=== PATIENT | male | born 1940 | race Caucasian/White ===

== ENCOUNTER 2017-11-02 09:58 | Inpatient (IN) | payer MEDICARE, OTHER ==
[2017-11-02 11:39] LABS: ADD MAN DIFF? NO
[2017-11-02 12:05] LABS: BASOPHILS % 0.3 % (0.0-2.0); EOSINOPHILS # 0.1 10^3/ul (0.0-0.5); EOSINOPHILS % 1.3 % (0.0-7.0); HEMATOCRIT 29.7 % (42.0-52.0); LYMPHOCYTES # 0.9 10^3/ul (0.8-2.9); LYMPHOCYTES % 9.8 % (15.0-51.0); MEAN CORPUSCULAR HEMOGLOBIN 30.7 pg (29.0-33.0); MEAN CORPUSCULAR HGB CONC 33.7 g/dl (32.0-37.0); MEAN CORPUSCULAR VOLUME 91.1 fl (82.0-101.0); MEAN PLATELET VOLUME 11.2 fl (7.4-10.4); MONOCYTE # 0.8 10^3/ul (0.3-0.9); NEUTROPHIL # 7.1 10^3/ul (1.6-7.5); NEUTROPHILS % 77.6 % (39.0-77.0); PLATELET COUNT 150 10^3/UL (140-415); RED BLOOD COUNT 3.26 10^6/ul (4.70-6.10); RED CELL DISTRIBUTION WIDTH 13.2 % (11.5-14.5)
[2017-11-02 12:05] LABS: WHITE BLOOD COUNT 9.2 10^3/ul (4.8-10.8)
[2017-11-02 12:11] LABS: LACTIC ACID 0.9 mmol/L (0.5-2.0)
[2017-11-02 12:13] LABS: ALANINE AMINOTRANSFERASE 46 IU/L (13-69); ALBUMIN 4.1 g/dl (3.3-4.9); ALBUMIN/GLOBULIN RATIO 1.05; ALKALINE PHOSPHATASE 117 IU/L (42-121); AMYLASE 67 U/L (11-123); ANION GAP 18 (8-16); ASPARTATE AMINO TRANSFERASE 24 IU/L (15-46); BILIRUBIN,INDIRECT 0.2 mg/dl (0-1.1); BILIRUBIN,TOTAL 0.2 mg/dl (0.2-1.3); BLOOD UREA NITROGEN 48 mg/dl (7-20); CARBON DIOXIDE 29 mmol/L (21-31); CHLORIDE 94 mmol/L (97-110); CREATININE 8.48 mg/dl (0.61-1.24); GLUCOSE 110 mg/dl (70-220); LIPASE 34 U/L (23-300); POTASSIUM 4.5 mmol/L (3.5-5.1); SODIUM 136 mmol/L (135-144)
[2017-11-02 12:26] LABS: TROPONIN-I 0.037 ng/ml (0.00-0.12)
[2017-11-02] MEDS: morphine 4 MG/ML VIAL IV (12:31)
[2017-11-02] MEDS: ONDANSETRON 4 MG INJ IV (12:32)
[2017-11-02] MEDS: ACETAMINOPHEN 500 MG TAB PO (12:33)
[2017-11-02] MEDS: PIPER-TAZO 3.375 GM IV (PMX) 50 ML IVPB (12:33)
[2017-11-02] MEDS: FUROSEMIDE 40 MG INJ IV (12:36)
[2017-11-02 12:57] LABS: B-TYPE NATRIURETIC PEPTIDE 2730 PG/ML (0-450)
[2017-11-02] MEDS ORDERED: ONDANSETRON 4 MG INJ IV ×2 (13:00→13:30)
[2017-11-02] MEDS ORDERED: ACETAMINOPHEN 325 MG TAB PO ×2 (13:00→13:30)
[2017-11-02] MEDS ORDERED: HYDROCODONE/APAP (5/325) TAB PO (13:30)
[2017-11-02] MEDS ORDERED: NACL 0.9% 3 ML SYG IV (13:30)
[2017-11-02] MEDS ORDERED: DOCUSATE SODIUM 100 MG CAP PO (13:30)
[2017-11-02] MEDS ORDERED: MAGNESIUM HYDROXIDE 30ML CUP PO (13:30)
[2017-11-02] MEDS ORDERED: VANCOMYCIN IV PER PHARMACY XX (13:30)
[2017-11-02] MEDS ORDERED: ZOLPIDEM 5 MG TAB PO (13:30)
[2017-11-02] MEDS ORDERED: ALBUTEROL HFA 8 GM INHALER INH (13:30)
[2017-11-02] MEDS ORDERED: GLUCOSE GEL 15 GRAM TUBE PO ×2 (15:00)
[2017-11-02] MEDS ORDERED: DEXTROSE 50% 50 ML SYRINGE IV ×2 (15:00)
[2017-11-02] MEDS ORDERED: GLUCAGON 1 MG INJ IM (15:00)
[2017-11-02] MEDS ORDERED: GLUCOSE GEL 15 GRAM TUBE BUCCAL (15:00)
[2017-11-02] MEDS: ALBUTEROL 0.083% (NEB) 2.5 MG/3 ML AMP NEB (15:04)
[2017-11-02] MEDS: IPRATROPIUM (NEB) 0.5 MG/2.5 ML AMP NEB (15:04)
[2017-11-02] MEDS: VANCOMYCIN 1.5 GM in DEXTROSE 5% 500 ML IVPB (16:04)
[2017-11-02] MEDS: INSULIN ASPART [NOVOLOG] 3 ML PEN SC ×2 (21:00→21:48)
[2017-11-02] MEDS: CALCIUM ACETATE 667 MG CAP PO (21:02)
[2017-11-02] MEDS: SEVELAMER CARBONATE 0.8 GM PKT PO (21:02)
[2017-11-02] MEDS: HEPARIN 5,000 UNIT/0.5 ML VIAL SC (21:20)
[2017-11-02] MEDS: ATORVASTATIN 80 MG TAB PO (21:49)
[2017-11-02] MEDS: PIPER-TAZO 2.25 GM (PMX) 50 ML IVPB (22:51)
[2017-11-03] MEDS: ACCU-CHEK XX (02:12)
[2017-11-03] MEDS ORDERED: PANTOPRAZOLE (EC) 40 MG TAB PO (06:00)
[2017-11-03] MEDS: PANTOPRAZOLE (EC) 40 MG TAB PO (06:41)
[2017-11-03] MEDS: PIPER-TAZO 2.25 GM (PMX) 50 ML IVPB ×2 (06:42→13:14)
[2017-11-03] MEDS: INSULIN ASPART [NOVOLOG] 3 ML PEN SC ×4 (08:00→21:00)
[2017-11-03] MEDS: METOPROLOL (XL) 50 MG TAB PO (09:00)
[2017-11-03] MEDS: LISINOPRIL 5 MG TAB PO (09:00)
[2017-11-03 09:10] LABS: ADD MAN DIFF? NO
[2017-11-03] MEDS: morphine 2 MG INJ IV (09:10)
[2017-11-03] MEDS: CALCIUM ACETATE 667 MG CAP PO ×3 (09:11→17:43)
[2017-11-03] MEDS: ASPIRIN (EC) 81 MG TAB PO (09:11)
[2017-11-03] MEDS: CLOPIDOGREL 75 MG TAB PO (09:11)
[2017-11-03] MEDS: HEPARIN 5,000 UNIT/0.5 ML VIAL SC ×2 (09:13→20:47)
[2017-11-03 09:26] LABS: WHITE BLOOD COUNT 5.9 10^3/ul (4.8-10.8)
[2017-11-03 09:26] LABS: BASOPHILS % 0.5 % (0.0-2.0); EOSINOPHILS # 0.1 10^3/ul (0.0-0.5); EOSINOPHILS % 1.9 % (0.0-7.0); HEMATOCRIT 31.1 % (42.0-52.0); HEMOGLOBIN 10.3 g/dl (14.0-18.0); LYMPHOCYTES % 16.2 % (15.0-51.0); MEAN CORPUSCULAR HEMOGLOBIN 30.6 pg (29.0-33.0); MEAN CORPUSCULAR HGB CONC 33.1 g/dl (32.0-37.0); MEAN CORPUSCULAR VOLUME 92.3 fl (82.0-101.0); MEAN PLATELET VOLUME 10.9 fl (7.4-10.4); MONOCYTE # 0.6 10^3/ul (0.3-0.9); MONOCYTES % 10.9 % (0.0-11.0); NEUTROPHIL # 3.9 10^3/ul (1.6-7.5); NEUTROPHILS % 66.9 % (39.0-77.0); PLATELET COUNT 150 10^3/UL (140-415); RED BLOOD COUNT 3.37 10^6/ul (4.70-6.10); RED CELL DISTRIBUTION WIDTH 13.4 % (11.5-14.5)
[2017-11-03 09:39] LABS: ALANINE AMINOTRANSFERASE 41 IU/L (13-69); ALBUMIN 3.8 g/dl (3.3-4.9); ALBUMIN/GLOBULIN RATIO 1.02; ALKALINE PHOSPHATASE 101 IU/L (42-121); ANION GAP 22 (8-16); ASPARTATE AMINO TRANSFERASE 25 IU/L (15-46); BILIRUBIN,INDIRECT 0.1 mg/dl (0-1.1); BILIRUBIN,TOTAL 0.1 mg/dl (0.2-1.3); BLOOD UREA NITROGEN 60 mg/dl (7-20); CALCIUM 8.8 mg/dl (8.4-10.2); CARBON DIOXIDE 21 mmol/L (21-31); CHLORIDE 96 mmol/L (97-110); CREATININE 9.65 mg/dl (0.61-1.24); GLUCOSE 108 mg/dl (70-220); PHOSPHORUS 6.2 mg/dl (2.5-4.9); POTASSIUM 5.1 mmol/L (3.5-5.1); SODIUM 134 mmol/L (135-144); TOTAL PROTEIN 7.5 g/dl (6.1-8.1)
[2017-11-03 09:44] LABS: URIC ACID 8.7 mg/dl (3.1-7.9)
[2017-11-03] MEDS: SEVELAMER CARBONATE 0.8 GM PKT PO ×3 (10:01→17:44)
[2017-11-03 10:06] LABS: THYROID STIMULATING HORMONE 0.695 MIU/L (0.465-4.680)
[2017-11-03 11:20] LABS: HEMOGLOBIN A1C 5.4 % (0-5.9)
[2017-11-03] MEDS: ALLOPURINOL 100 MG TAB PO (13:12)
[2017-11-03] MEDS ORDERED: VANCOMYCIN IV PER PHARMACY XX (14:30)
[2017-11-03] MEDS: COLCHICINE 0.6 MG TAB PO (16:46)
[2017-11-03] MEDS ORDERED: BUPIVACAINE 0.5%/EPI (SDV) 30 ML INJ INJ (17:30)
[2017-11-03] MEDS ORDERED: BETAMET NA PHOS/AC(6 MG/ML) 5ML INJ INJ (17:30)
[2017-11-03] MEDS: ATORVASTATIN 80 MG TAB PO (20:46)
[2017-11-04] MEDS: ACCU-CHEK XX (02:47)
[2017-11-04 05:47] LABS: ADD MAN DIFF? NO
[2017-11-04 05:56] LABS: WHITE BLOOD COUNT 6.6 10^3/ul (4.8-10.8)
[2017-11-04 05:56] LABS: BASOPHILS % 0.3 % (0.0-2.0); EOSINOPHILS # 0.2 10^3/ul (0.0-0.5); EOSINOPHILS % 2.4 % (0.0-7.0); HEMATOCRIT 30.7 % (42.0-52.0); HEMOGLOBIN 10.4 g/dl (14.0-18.0); LYMPHOCYTES # 0.8 10^3/ul (0.8-2.9); LYMPHOCYTES % 12.2 % (15.0-51.0); MEAN CORPUSCULAR HEMOGLOBIN 30.9 pg (29.0-33.0); MEAN CORPUSCULAR HGB CONC 33.9 g/dl (32.0-37.0); MEAN CORPUSCULAR VOLUME 91.1 fl (82.0-101.0); MEAN PLATELET VOLUME 10.8 fl (7.4-10.4); MONOCYTE # 0.7 10^3/ul (0.3-0.9); MONOCYTES % 10.4 % (0.0-11.0); NEUTROPHIL # 4.8 10^3/ul (1.6-7.5); NEUTROPHILS % 72.7 % (39.0-77.0); PLATELET COUNT 175 10^3/UL (140-415); RED BLOOD COUNT 3.37 10^6/ul (4.70-6.10)
[2017-11-04] MEDS: PANTOPRAZOLE (EC) 40 MG TAB PO (06:19)
[2017-11-04 06:36] LABS: ANION GAP 18 (8-16); BLOOD UREA NITROGEN 31 mg/dl (7-20); CALCIUM 8.7 mg/dl (8.4-10.2); CARBON DIOXIDE 28 mmol/L (21-31); CHLORIDE 94 mmol/L (97-110); CREATININE 6.08 mg/dl (0.61-1.24); GLUCOSE 159 mg/dl (70-220); POTASSIUM 4.6 mmol/L (3.5-5.1); SODIUM 135 mmol/L (135-144)
[2017-11-04 06:41] LABS: PHOSPHORUS 4.2 mg/dl (2.5-4.9)
[2017-11-04 06:41] LABS: MAGNESIUM 1.8 mg/dl (1.7-2.5); URIC ACID 4.4 mg/dl (3.1-7.9)
[2017-11-04] MEDS: INSULIN ASPART [NOVOLOG] 3 ML PEN SC ×4 (08:00→21:00)
[2017-11-04] MEDS: SEVELAMER CARBONATE 0.8 GM PKT PO ×3 (08:32→18:44)
[2017-11-04] MEDS: HEPARIN 5,000 UNIT/0.5 ML VIAL SC ×2 (08:33→21:18)
[2017-11-04] MEDS: CLOPIDOGREL 75 MG TAB PO (08:35)
[2017-11-04] MEDS: ASPIRIN (EC) 81 MG TAB PO (08:35)
[2017-11-04] MEDS: CALCIUM ACETATE 667 MG CAP PO ×3 (08:35→18:44)
[2017-11-04] MEDS: METOPROLOL (XL) 50 MG TAB PO (08:35)
[2017-11-04] MEDS: ALLOPURINOL 100 MG TAB PO (08:35)
[2017-11-04] MEDS: LISINOPRIL 5 MG TAB PO (08:35)
[2017-11-04] MEDS: VANCOMYCIN 1 GM 250 ML IVPB (11:52)
[2017-11-04] MEDS: ATORVASTATIN 80 MG TAB PO (21:19)
[2017-11-05] MEDS: ACCU-CHEK XX (02:00)
[2017-11-05] MEDS: PANTOPRAZOLE (EC) 40 MG TAB PO (06:19)
[2017-11-05] MEDS: INSULIN ASPART [NOVOLOG] 3 ML PEN SC ×4 (08:00→21:00)
[2017-11-05] MEDS: CLOPIDOGREL 75 MG TAB PO (08:29)
[2017-11-05] MEDS: ASPIRIN (EC) 81 MG TAB PO (08:29)
[2017-11-05] MEDS: CALCIUM ACETATE 667 MG CAP PO ×3 (08:29→17:30)
[2017-11-05] MEDS: ALLOPURINOL 100 MG TAB PO (08:29)
[2017-11-05] MEDS: SEVELAMER CARBONATE 0.8 GM PKT PO ×3 (08:29→17:29)
[2017-11-05] MEDS: HEPARIN 5,000 UNIT/0.5 ML VIAL SC ×2 (08:35→21:54)
[2017-11-05 08:41] LABS: ADD MAN DIFF? NO
[2017-11-05 08:45] LABS: BASOPHILS % 0.4 % (0.0-2.0); EOSINOPHILS # 0.1 10^3/ul (0.0-0.5); EOSINOPHILS % 2.6 % (0.0-7.0); HEMATOCRIT 30.3 % (42.0-52.0); HEMOGLOBIN 10.3 g/dl (14.0-18.0); MEAN CORPUSCULAR HEMOGLOBIN 30.7 pg (29.0-33.0); MEAN CORPUSCULAR VOLUME 90.4 fl (82.0-101.0); MEAN PLATELET VOLUME 11.2 fl (7.4-10.4); MONOCYTE # 0.5 10^3/ul (0.3-0.9); MONOCYTES % 10.3 % (0.0-11.0); NEUTROPHIL # 3.3 10^3/ul (1.6-7.5); NEUTROPHILS % 64.3 % (39.0-77.0); PLATELET COUNT 145 10^3/UL (140-415); RED BLOOD COUNT 3.35 10^6/ul (4.70-6.10); RED CELL DISTRIBUTION WIDTH 13.2 % (11.5-14.5)
[2017-11-05 08:45] LABS: WHITE BLOOD COUNT 5.1 10^3/ul (4.8-10.8)
[2017-11-05 09:00] LABS: ANION GAP 21 (8-16); BLOOD UREA NITROGEN 48 mg/dl (7-20); CALCIUM 8.5 mg/dl (8.4-10.2); CARBON DIOXIDE 28 mmol/L (21-31); CHLORIDE 93 mmol/L (97-110); CREATININE 8.74 mg/dl (0.61-1.24); GLUCOSE 117 mg/dl (70-220); SODIUM 137 mmol/L (135-144)
[2017-11-05] MEDS: METOPROLOL (XL) 50 MG TAB PO (09:00)
[2017-11-05] MEDS: LISINOPRIL 5 MG TAB PO (09:00)
[2017-11-05 09:05] LABS: POTASSIUM 5.3 mmol/L (3.5-5.1)
[2017-11-05 09:10] LABS: PHOSPHORUS 5.9 mg/dl (2.5-4.9)
[2017-11-05] MEDS: FAMOTIDINE 20 MG TAB PO (21:54)
[2017-11-05] MEDS: ATORVASTATIN 40 MG TAB PO (21:54)
[2017-11-06] MEDS: NAPROXEN 250 MG TAB PO ×2 (00:03→09:26)
[2017-11-06] MEDS: ACCU-CHEK XX (02:00)
[2017-11-06] MEDS: PANTOPRAZOLE (EC) 40 MG TAB PO (05:37)
[2017-11-06] MEDS: INSULIN ASPART [NOVOLOG] 3 ML PEN SC ×3 (08:00→17:38)
[2017-11-06 08:13] LABS: ADD MAN DIFF? NO
[2017-11-06] MEDS: CALCIUM ACETATE 667 MG CAP PO ×3 (08:16→17:35)
[2017-11-06 08:18] LABS: BASOPHILS % 0.3 % (0.0-2.0); EOSINOPHILS # 0.1 10^3/ul (0.0-0.5); EOSINOPHILS % 1.9 % (0.0-7.0); HEMATOCRIT 32.7 % (42.0-52.0); HEMOGLOBIN 10.9 g/dl (14.0-18.0); LYMPHOCYTES # 1.2 10^3/ul (0.8-2.9); LYMPHOCYTES % 20.3 % (15.0-51.0); MEAN CORPUSCULAR HEMOGLOBIN 30.6 pg (29.0-33.0); MEAN CORPUSCULAR HGB CONC 33.3 g/dl (32.0-37.0); MEAN CORPUSCULAR VOLUME 91.9 fl (82.0-101.0); MEAN PLATELET VOLUME 11.2 fl (7.4-10.4); MONOCYTE # 0.6 10^3/ul (0.3-0.9); MONOCYTES % 10.7 % (0.0-11.0); NEUTROPHIL # 3.8 10^3/ul (1.6-7.5); NEUTROPHILS % 64.9 % (39.0-77.0); PLATELET COUNT 139 10^3/UL (140-415); RED BLOOD COUNT 3.56 10^6/ul (4.70-6.10); RED CELL DISTRIBUTION WIDTH 12.9 % (11.5-14.5)
[2017-11-06 08:18] LABS: WHITE BLOOD COUNT 5.8 10^3/ul (4.8-10.8)
[2017-11-06] MEDS: SEVELAMER CARBONATE 0.8 GM PKT PO ×3 (08:21→17:35)
[2017-11-06 08:52] LABS: ANION GAP 21 (8-16); BLOOD UREA NITROGEN 33 mg/dl (7-20); CALCIUM 8.6 mg/dl (8.4-10.2); CARBON DIOXIDE 30 mmol/L (21-31); CHLORIDE 97 mmol/L (97-110); GLUCOSE 102 mg/dl (70-220); POTASSIUM 5.1 mmol/L (3.5-5.1); SODIUM 143 mmol/L (135-144)
[2017-11-06 08:57] LABS: MAGNESIUM 2.2 mg/dl (1.7-2.5)
[2017-11-06 08:57] LABS: PHOSPHORUS 6.1 mg/dl (2.5-4.9)
[2017-11-06] MEDS: LISINOPRIL 5 MG TAB PO (09:25)
[2017-11-06] MEDS: CLOPIDOGREL 75 MG TAB PO (09:25)
[2017-11-06] MEDS: ASPIRIN (EC) 81 MG TAB PO (09:26)
[2017-11-06] MEDS: ALLOPURINOL 100 MG TAB PO (09:26)
[2017-11-06] MEDS: METOPROLOL (XL) 50 MG TAB PO (09:27)
[2017-11-06] MEDS: HEPARIN 5,000 UNIT/0.5 ML VIAL SC (09:29)
== END 2017-11-06 17:49 | disposition home or self-care (01) | DRG 602 ==
LOC: MS4 12:42 → PP2 11-06 13:22 → E/R 09:58
PROC: 5A1D70Z Performance of Urinary Filtration, Intermittent, Less than 6 Hours Per Day (ICD-10-PCS; principal; 2017-11-03)
DX: L03.115 Cellulitis of right lower limb (principal); N18.6 End stage renal disease; R78.81 Bacteremia; E87.70 Fluid overload, unspecified; I12.0 Hypertensive chronic kidney disease with stage 5 chronic kidney disease or end stage renal disease; J44.9 Chronic obstructive pulmonary disease, unspecified; B95.61 Methicillin susceptible Staphylococcus aureus infection as the cause of diseases classified elsewhere; E78.5 Hyperlipidemia, unspecified; D63.1 Anemia in chronic kidney disease; S76.111A Strain of right quadriceps muscle, fascia and tendon, initial encounter; L02.415 Cutaneous abscess of right lower limb; I25.10 Atherosclerotic heart disease of native coronary artery without angina pectoris; I25.2 Old myocardial infarction; M10.9 Gout, unspecified; M23.221 Derangement of posterior horn of medial meniscus due to old tear or injury, right knee; M76.51 Patellar tendinitis, right knee; M76.891 Other specified enthesopathies of right lower limb, excluding foot; M71.9 Bursopathy, unspecified; M71.21 Synovial cyst of popliteal space [Baker], right knee; M25.461 Effusion, right knee; M17.11 Unilateral primary osteoarthritis, right knee; R73.03 Prediabetes; X58.XXXA Exposure to other specified factors, initial encounter; Z99.2 Dependence on renal dialysis; Z95.1 Presence of aortocoronary bypass graft; Z95.5 Presence of coronary angioplasty implant and graft; Z87.891 Personal history of nicotine dependence; Z79.02 Long term (current) use of antithrombotics/antiplatelets; Z79.82 Long term (current) use of aspirin
CPT/HCPCS: 71045; 73562; 73721; 80048; 80053; 80202; 82150; 82962; 83036; 83605; 83690; 83735; 83880; 84100; 84443; 84484; 84560; 85025; 86850; 86900; 86901; 87040; 87086; 90935; 93005; 93306; 94664; 96372; 96374; 96375; 99285-25

== ENCOUNTER 2018-05-17 15:31 | Inpatient (IN) | payer MEDICARE, OTHER ==
[2018-05-17 17:39] LABS: ADD MAN DIFF? NO
[2018-05-17 17:41] LABS: ADD UMIC YES; UR ASCORBIC ACID NEGATIVE (NEGATIVE); UR BILIRUBIN (Dip) NEGATIVE (NEGATIVE); UR BLOOD (Dip) 2+ mg/dL (NEGATIVE); UR CLARITY CLEAR (CLEAR); UR COLOR YELLOW (YELLOW); UR GLUCOSE (Dip) 1+ mg/dL (NEGATIVE); UR KETONES (Dip) NEGATIVE (NEGATIVE); UR LEUKOCYTE ESTERASE (Dip) NEGATIVE Leu/ul (NEGATIVE); UR NITRITE (Dip) NEGATIVE (NEGATIVE); UR RBC 29 /HPF (0-5); UR SPECIFIC GRAVITY (Dip) 1.019 (1.003-1.030); UR TOTAL PROTEIN (Dip) 3+ mg/dl (NEGATIVE); UR UROBILINOGEN (Dip) NEGATIVE (NEGATIVE); UR WBC 2 /HPF (0-5)
[2018-05-17] MEDS: ACETAMINOPHEN 325 MG TAB PO (17:44)
[2018-05-17] MEDS: CEFEPIME 2GM/50 ML (PMX) 50 ML IVPB (17:44)
[2018-05-17 17:50] LABS: ABNORMAL IP MESSAGE 1; HEMATOCRIT 35.7 % (42.0-52.0); HEMOGLOBIN 11.6 g/dl (14.0-18.0); MEAN CORPUSCULAR HEMOGLOBIN 31.4 pg (29.0-33.0); MEAN CORPUSCULAR HGB CONC 32.5 g/dl (32.0-37.0); MEAN CORPUSCULAR VOLUME 96.5 fl (82.0-101.0); MEAN PLATELET VOLUME 12.1 fl (7.4-10.4); PLATELET COUNT 89 10^3/UL (140-415); POSITIVE DIFF @See below; RED CELL DISTRIBUTION WIDTH 13.3 % (11.5-14.5)
[2018-05-17 17:50] LABS: WHITE BLOOD COUNT 11.7 10^3/ul (4.8-10.8)
[2018-05-17 18:09] LABS: INR 1.32; PROTIME 16.6 Sec (11.9-14.9); PT RATIO 1.3
[2018-05-17 18:10] LABS: ALANINE AMINOTRANSFERASE 23 IU/L (13-69); ALBUMIN 4.5 g/dl (3.3-4.9); ALBUMIN/GLOBULIN RATIO 1.36; ALKALINE PHOSPHATASE 118 IU/L (42-121); ANION GAP 19 (8-16); ASPARTATE AMINO TRANSFERASE 23 IU/L (15-46); BILIRUBIN,INDIRECT 0.4 mg/dl (0-1.1); BILIRUBIN,TOTAL 0.4 mg/dl (0.2-1.3); BLOOD UREA NITROGEN 42 mg/dl (7-20); CALCIUM 8.9 mg/dl (8.4-10.2); CARBON DIOXIDE 28 mmol/L (21-31); CHLORIDE 94 mmol/L (97-110); CREATININE 9.99 mg/dl (0.61-1.24); GLUCOSE 104 mg/dl (70-220); LIPASE 49 U/L (23-300); SODIUM 136 mmol/L (135-144); TOTAL PROTEIN 7.8 g/dl (6.1-8.1)
[2018-05-17 18:22] LABS: LACTIC ACID 1.3 mmol/L (0.5-2.0)
[2018-05-17 18:22] LABS: POTASSIUM 5.4 mmol/L (3.5-5.1)
[2018-05-17 18:29] LABS: BASOPHIL #M 0.1 10^3/ul (0.0-0.0); BASOPHILS % (M) 1 % (0-2); EOSINOPHILS % (M) 1 % (0-7); GIANT THROMBO% (M) 1 % (0-0); LYMPHOCYTES % (M) 9 % (15-51); MONOCYTE #M 1.4 10^3/ul (0.3-0.9); MONOCYTES % (M) 12 % (0-11); PLATELET ESTIMATE DECREASED; SEGMENTED NEUTROPHILS (M) % 77 % (39-77)
[2018-05-17 18:42] LABS: TROPONIN-I 0.034 ng/ml (0.000-0.120)
[2018-05-17] MEDS: IPRATROPIUM (NEB) 0.5 MG/2.5 ML AMP INH (18:44)
[2018-05-17] MEDS: ALBUTEROL 0.5% (NEB) 2.5 MG/0.5 ML AMP INH (18:45)
[2018-05-17] MEDS: VANCOMYCIN 1 GM (PMX) 250 ML IVPB (19:35)
[2018-05-17 20:00] LABS: LACTIC ACID 0.8 mmol/L (0.5-2.0)
[2018-05-17 22:16] LABS: LACTIC ACID 0.8 mmol/L (0.5-2.0)
[2018-05-17 22:53] LABS: PHOSPHORUS 4.1 mg/dl (2.5-4.9)
[2018-05-17 23:24] LABS: CARCINOEMBRYONIC ANTIGEN 4.4 ng/ml (0.0-5.0)
[2018-05-17 23:48] LABS: PROSTATE SPECIFIC ANTIGEN 2.2 ng/ml (0.0-4.0)
[2018-05-18] MEDS ORDERED: VANCOMYCIN IV PER PHARMACY XX ×2 (00:30→06:30)
[2018-05-18] MEDS: LISINOPRIL 5 MG TAB PO (01:10)
[2018-05-18] MEDS: METOPROLOL (XL) 50 MG TAB PO ×2 (01:11→08:56)
[2018-05-18] MEDS: ALBUTEROL/IPRATROPIUM (NEB) 3 ML AMP HHN ×5 (02:09→20:38)
[2018-05-18] MEDS: PANTOPRAZOLE (EC) 40 MG TAB PO (05:26)
[2018-05-18 06:33] LABS: ADD MAN DIFF? NO
[2018-05-18 06:55] LABS: ANION GAP 21 (8-16); BLOOD UREA NITROGEN 49 mg/dl (7-20); CALCIUM 8.7 mg/dl (8.4-10.2); CARBON DIOXIDE 21 mmol/L (21-31); CHLORIDE 98 mmol/L (97-110); CREATININE 10.07 mg/dl (0.61-1.24); GLUCOSE 115 mg/dl (70-220); POTASSIUM 5.7 mmol/L (3.5-5.1); SODIUM 134 mmol/L (135-144)
[2018-05-18 06:58] LABS: WHITE BLOOD COUNT 8.8 10^3/ul (4.8-10.8)
[2018-05-18 06:58] LABS: ABNORMAL IP MESSAGE 1; BASOPHILS % 0.3 % (0.0-2.0); EOSINOPHILS # 0.1 10^3/ul (0.0-0.5); EOSINOPHILS % 0.8 % (0.0-7.0); HEMATOCRIT 33.7 % (42.0-52.0); HEMOGLOBIN 10.9 g/dl (14.0-18.0); LYMPHOCYTES # 0.7 10^3/ul (0.8-2.9); LYMPHOCYTES % 7.4 % (15.0-51.0); MEAN CORPUSCULAR HEMOGLOBIN 31.5 pg (29.0-33.0); MEAN CORPUSCULAR HGB CONC 32.3 g/dl (32.0-37.0); MEAN CORPUSCULAR VOLUME 97.4 fl (82.0-101.0); MEAN PLATELET VOLUME 12.1 fl (7.4-10.4); MONOCYTE # 0.9 10^3/ul (0.3-0.9); MONOCYTES % 9.6 % (0.0-11.0); NEUTROPHIL # 7.2 10^3/ul (1.6-7.5); NEUTROPHILS % 81.3 % (39.0-77.0); PLATELET COUNT 75 10^3/UL (140-415); POSITIVE DIFF @See below; RED BLOOD COUNT 3.46 10^6/ul (4.70-6.10); RED CELL DISTRIBUTION WIDTH 13.4 % (11.5-14.5)
[2018-05-18] MEDS: ALLOPURINOL 100 MG TAB PO (08:53)
[2018-05-18] MEDS: MULTIVIT/CA CARB/B CMPLX/FA TAB PO (08:53)
[2018-05-18] MEDS: ASPIRIN 81 MG TAB PO (08:53)
[2018-05-18] MEDS: DILTIAZEM (CD) 240 MG CAP PO (08:54)
[2018-05-18] MEDS: SEVELAMER CARBONATE 0.8 GM PKT PO ×3 (08:56→17:55)
[2018-05-18] MEDS: CALCIUM ACETATE 667 MG CAP PO ×6 (08:56→17:55)
[2018-05-18] MEDS: ACETAMINOPHEN 325 MG TAB PO (08:56)
[2018-05-18] MEDS: hydrALAzine 20 MG INJ IV (08:57)
[2018-05-18] MEDS: NA POLYST SULFON 15 GM/60 ML BTL PO (08:58)
[2018-05-18] MEDS: NICOTINE (14 MG/24 HR) PATCH TRANSDERM ×2 (08:58→09:00)
[2018-05-18] MEDS: CEFEPIME 1GM/50 ML (PMX) 50 ML IVPB ×2 (08:58→20:21)
[2018-05-18] MEDS ORDERED: CEFEPIME 1GM/50 ML (PMX) 50 ML IVPB (09:00)
[2018-05-18] MEDS: NON-FORMULARY/PATIENT OWN MED (Clopidogrel Bisulfate (Clopidogrel) 75 MG) XX (09:00)
[2018-05-18] MEDS ORDERED: IOHEXOL 14.3 MG(I)/ML (ADULT) BTL PO (09:30)
[2018-05-18 11:09] LABS: PARTIAL THROMBOPLASTIN TIME 43.7 Sec (25.0-35.0)
[2018-05-18 11:15] LABS: IMMUNOGLOBULIN A 292 mg/dl (70-400); IMMUNOGLOBULIN G 866 mg/dl (700-1600); IMMUNOGLOBULIN M 91 mg/dl (40-230)
[2018-05-18 13:52] LABS: 50/50 PTT IMMED 43.9 Sec
[2018-05-18 13:54] LABS: 50/50 PTT 1 HOUR 52.7 Sec
[2018-05-18] MEDS: ATORVASTATIN 80 MG TAB PO (20:21)
[2018-05-19] MEDS: PANTOPRAZOLE (EC) 40 MG TAB PO (05:50)
[2018-05-19 06:02] LABS: ADD MAN DIFF? NO
[2018-05-19 06:09] LABS: WHITE BLOOD COUNT 9.7 10^3/ul (4.8-10.8)
[2018-05-19 06:09] LABS: ABNORMAL IP MESSAGE 1; BASOPHILS % 0.2 % (0.0-2.0); EOSINOPHILS # 0.1 10^3/ul (0.0-0.5); LYMPHOCYTES # 0.7 10^3/ul (0.8-2.9); MEAN CORPUSCULAR HGB CONC 33.3 g/dl (32.0-37.0); MEAN PLATELET VOLUME 12.8 fl (7.4-10.4); MONOCYTES % 9.9 % (0.0-11.0); NEUTROPHIL # 7.9 10^3/ul (1.6-7.5); NEUTROPHILS % 81.3 % (39.0-77.0); PLATELET COUNT 97 10^3/UL (140-415); POSITIVE DIFF @See below; RED BLOOD COUNT 3.55 10^6/ul (4.70-6.10); RED CELL DISTRIBUTION WIDTH 13.2 % (11.5-14.5)
[2018-05-19 06:34] LABS: VANCOMYCIN,RANDOM 9.5 ug/ml
[2018-05-19 06:44] LABS: ALANINE AMINOTRANSFERASE 22 IU/L (13-69); ALBUMIN/GLOBULIN RATIO 1.29; ALKALINE PHOSPHATASE 104 IU/L (42-121); ANION GAP 20 (8-16); ASPARTATE AMINO TRANSFERASE 27 IU/L (15-46); BILIRUBIN,INDIRECT 0.2 mg/dl (0-1.1); BILIRUBIN,TOTAL 0.2 mg/dl (0.2-1.3); BLOOD UREA NITROGEN 55 mg/dl (7-20); CALCIUM 9.1 mg/dl (8.4-10.2); CARBON DIOXIDE 22 mmol/L (21-31); CHLORIDE 96 mmol/L (97-110); CREATININE 11.27 mg/dl (0.61-1.24); GLUCOSE 130 mg/dl (70-220); POTASSIUM 5.1 mmol/L (3.5-5.1); SODIUM 133 mmol/L (135-144); TOTAL PROTEIN 7.1 g/dl (6.1-8.1)
[2018-05-19 06:46] LABS: HEMOGLOBIN A1C 5.3 % (0-5.9)
[2018-05-19 06:47] LABS: MAGNESIUM 1.7 mg/dl (1.7-2.5)
[2018-05-19 06:47] LABS: LACTATE DEHYDROGENASE 286 IU/L (313-618)
[2018-05-19 07:05] LABS: THYROID STIMULATING HORMONE 0.413 MIU/L (0.465-4.680)
[2018-05-19] MEDS: ASPIRIN 81 MG TAB PO (07:55)
[2018-05-19] MEDS: ALLOPURINOL 100 MG TAB PO (07:56)
[2018-05-19] MEDS: LISINOPRIL 5 MG TAB PO (07:56)
[2018-05-19] MEDS: DILTIAZEM (CD) 240 MG CAP PO (07:56)
[2018-05-19] MEDS: METOPROLOL (XL) 50 MG TAB PO (07:56)
[2018-05-19] MEDS: MULTIVIT/CA CARB/B CMPLX/FA TAB PO (07:56)
[2018-05-19] MEDS: NICOTINE (14 MG/24 HR) PATCH TRANSDERM (07:56)
[2018-05-19] MEDS: NON-FORMULARY/PATIENT OWN MED (Clopidogrel Bisulfate (Clopidogrel) 75 MG) XX (07:57)
[2018-05-19] MEDS ORDERED: FAMOTIDINE 20 MG INJ IV (08:30)
[2018-05-19] MEDS: FAMOTIDINE 20 MG INJ IV (08:57)
[2018-05-19] MEDS: CEFEPIME 1GM/50 ML (PMX) 50 ML IVPB (08:58)
[2018-05-19] MEDS: ALBUTEROL/IPRATROPIUM (NEB) 3 ML AMP HHN ×4 (08:59→20:32)
[2018-05-19] MEDS ORDERED: EPHEDrine SULFATE 50 MG/5 ML SYG IV (12:30)
[2018-05-19] MEDS ORDERED: ALBUTEROL 0.083% (NEB) 2.5 MG/3 ML AMP HHN (12:30)
[2018-05-19] MEDS ORDERED: morphine (1 MG/ML) 10ML SYRINGE IV ×2 (12:30)
[2018-05-19] MEDS ORDERED: LABETALOL HCL 20MG INJ IV (12:30)
[2018-05-19] MEDS ORDERED: METOCLOPRAMIDE 10 MG INJ IV (12:30)
[2018-05-19] MEDS ORDERED: DIPHENHYDRAMINE 50 MG INJ IV (12:30)
[2018-05-19] MEDS ORDERED: MIDAZOLAM 1 MG/ML 2 ML INJ IV (12:30)
[2018-05-19] MEDS ORDERED: hydrALAzine 20 MG INJ IV (12:30)
[2018-05-19] MEDS ORDERED: OXYCODONE/ACETAMINOPHEN (5/325) TAB PO (12:30)
[2018-05-19] MEDS ORDERED: ONDANSETRON 4 MG INJ IV (12:30)
[2018-05-19] MEDS ORDERED: FENTAnyl 50 MCG/ML VIAL IV ×2 (12:30)
[2018-05-19] MEDS: VANCOMYCIN 1 GM 250 ML IVPB (14:16)
[2018-05-19] MEDS: ACETAMINOPHEN 325 MG TAB PO (20:17)
[2018-05-19] MEDS: hydrALAzine 20 MG INJ IV (20:17)
[2018-05-19] MEDS: ATORVASTATIN 80 MG TAB PO (20:18)
[2018-05-19 20:19] LABS: HEPATITIS B SURFACE ANTIGEN NEGATIVE (NEGATIVE)
[2018-05-19 20:37] LABS: HEPATITIS B SURFACE ANTIBODY POSITIVE (NEGATIVE)
[2018-05-20] MEDS: hydrALAzine 20 MG INJ IV ×4 (00:06→21:47)
[2018-05-20] MEDS: PANTOPRAZOLE (EC) 40 MG TAB PO (00:54)
[2018-05-20] MEDS ORDERED: LIDOCAINE 2% (SDV) 5 ML INJ (07:00)
[2018-05-20 07:47] LABS: ADD MAN DIFF? NO
[2018-05-20 07:53] LABS: ABNORMAL IP MESSAGE 1; BASOPHILS % 0.3 % (0.0-2.0); EOSINOPHILS # 0.1 10^3/ul (0.0-0.5); HEMATOCRIT 34.7 % (42.0-52.0); HEMOGLOBIN 11.3 g/dl (14.0-18.0); LYMPHOCYTES # 0.5 10^3/ul (0.8-2.9); LYMPHOCYTES % 5.1 % (15.0-51.0); MEAN CORPUSCULAR HEMOGLOBIN 30.5 pg (29.0-33.0); MEAN CORPUSCULAR HGB CONC 32.6 g/dl (32.0-37.0); MEAN CORPUSCULAR VOLUME 93.5 fl (82.0-101.0); NEUTROPHIL # 8.3 10^3/ul (1.6-7.5); PLATELET COUNT 120 10^3/UL (140-415); POSITIVE DIFF @See below; RED BLOOD COUNT 3.71 10^6/ul (4.70-6.10); RED CELL DISTRIBUTION WIDTH 13.2 % (11.5-14.5)
[2018-05-20] MEDS: ASPIRIN 81 MG TAB PO (08:13)
[2018-05-20] MEDS: MULTIVIT/CA CARB/B CMPLX/FA TAB PO (08:14)
[2018-05-20] MEDS: METOPROLOL (XL) 50 MG TAB PO ×2 (08:14→14:59)
[2018-05-20] MEDS: DILTIAZEM (CD) 240 MG CAP PO (08:14)
[2018-05-20] MEDS: ALLOPURINOL 100 MG TAB PO (08:14)
[2018-05-20] MEDS: NON-FORMULARY/PATIENT OWN MED (Clopidogrel Bisulfate (Clopidogrel) 75 MG) XX (08:14)
[2018-05-20] MEDS: LISINOPRIL 5 MG TAB PO (08:14)
[2018-05-20] MEDS: NICOTINE (14 MG/24 HR) PATCH TRANSDERM (08:14)
[2018-05-20 08:15] LABS: PHOSPHORUS 3.5 mg/dl (2.5-4.9)
[2018-05-20] MEDS: CEFEPIME 1GM/50 ML (PMX) 50 ML IVPB (08:15)
[2018-05-20 08:23] LABS: ALANINE AMINOTRANSFERASE 64 IU/L (13-69); ALBUMIN/GLOBULIN RATIO 1.17; ALKALINE PHOSPHATASE 175 IU/L (42-121); ANION GAP 17 (8-16); ASPARTATE AMINO TRANSFERASE 67 IU/L (15-46); BILIRUBIN,INDIRECT 0.3 mg/dl (0-1.1); BILIRUBIN,TOTAL 0.3 mg/dl (0.2-1.3); BLOOD UREA NITROGEN 34 mg/dl (7-20); CARBON DIOXIDE 27 mmol/L (21-31); CHLORIDE 98 mmol/L (97-110); CREATININE 7.23 mg/dl (0.61-1.24); GLUCOSE 145 mg/dl (70-220); SODIUM 137 mmol/L (135-144); TOTAL PROTEIN 7.4 g/dl (6.1-8.1)
[2018-05-20] MEDS: ALBUTEROL/IPRATROPIUM (NEB) 3 ML AMP HHN ×5 (08:56→20:29)
[2018-05-20] MEDS ORDERED: LIDOCAINE 1% (MPF) 30 ML INJ (11:15)
[2018-05-20] MEDS ORDERED: SUCCINYLCHOLINE CHLORIDE 100 MG/5 ML SYG IV (11:25)
[2018-05-20] MEDS ORDERED: ROCURONIUM 50 MG INJ (11:25)
[2018-05-20] MEDS ORDERED: PROPOFOL 20 ML (11:25)
[2018-05-20] MEDS ORDERED: SUGAMMADEX SODIUM 200 MG/2 ML VIAL IV (11:25)
[2018-05-20] MEDS ORDERED: ALBUTEROL 0.5% (NEB) 2.5 MG/0.5 ML AMP (11:46)
[2018-05-20] MEDS ORDERED: FENTAnyl 50 MCG/ML VIAL (11:55)
[2018-05-20] MEDS ORDERED: LABETALOL HCL 20MG INJ IV (12:00)
[2018-05-20] MEDS ORDERED: LEVALBUTEROL (NEB) 1.25 MG/0.5 ML AMP HHN (12:00)
[2018-05-20] MEDS ORDERED: IPRATROPIUM (NEB) 0.5 MG/2.5 ML AMP HHN (12:00)
[2018-05-20] MEDS: ALBUTEROL 0.083% (NEB) 2.5 MG/3 ML AMP HHN (12:00)
[2018-05-20] MEDS: RACEPINEPHRINE 2.25%(NEB) 0.5 ML AMP HHN (12:00)
[2018-05-20] MEDS ORDERED: LEVALBUTEROL (NEB) 0.63 MG/3 ML AMP HHN (12:00)
[2018-05-20] MEDS ORDERED: ONDANSETRON 4 MG INJ IV (12:00)
[2018-05-20] MEDS ORDERED: MEPERIDINE 25 MG INJ IV (12:00)
[2018-05-20] MEDS ORDERED: METOCLOPRAMIDE 10 MG INJ IV (12:00)
[2018-05-20] MEDS ORDERED: DIPHENHYDRAMINE 50 MG INJ IV (12:00)
[2018-05-20] MEDS: FENTAnyl 50 MCG/ML VIAL IV (12:08)
[2018-05-20] MEDS: HYDROmorphONE 1 MG/5 ML IV SYRINGE IV (12:32)
[2018-05-20 15:09] LABS: INR 1.41; PROTIME 17.5 Sec (11.9-14.9); PT RATIO 1.4
[2018-05-20] MEDS: PHYTONADIONE 10 MG/ML INJ SC (17:18)
[2018-05-20] MEDS: ONDANSETRON 4 MG INJ IV (18:55)
[2018-05-20] MEDS: LABETALOL HCL 20MG INJ IV (18:56)
[2018-05-20] MEDS: ATORVASTATIN 80 MG TAB PO (21:01)
[2018-05-21] MEDS: PANTOPRAZOLE (EC) 40 MG TAB PO (06:00)
[2018-05-21] MEDS: LISINOPRIL 5 MG TAB PO (08:49)
[2018-05-21] MEDS: MULTIVIT/CA CARB/B CMPLX/FA TAB PO (08:49)
[2018-05-21] MEDS: CEFEPIME 1GM/50 ML (PMX) 50 ML IVPB (08:49)
[2018-05-21] MEDS: DILTIAZEM (CD) 240 MG CAP PO (08:50)
[2018-05-21] MEDS: ASPIRIN 81 MG TAB PO (08:50)
[2018-05-21] MEDS: ALLOPURINOL 100 MG TAB PO (08:50)
[2018-05-21] MEDS: METOPROLOL (XL) 50 MG TAB PO (08:51)
[2018-05-21] MEDS: NICOTINE (14 MG/24 HR) PATCH TRANSDERM (08:52)
[2018-05-21] MEDS: NON-FORMULARY/PATIENT OWN MED (Clopidogrel Bisulfate (Clopidogrel) 75 MG) XX (09:00)
[2018-05-21] MEDS ORDERED: AMLODIPINE 5 MG TAB PO (09:00)
[2018-05-21] MEDS: LORAZEPAM 1 MG TAB PO (09:15)
[2018-05-21] MEDS: ALBUTEROL/IPRATROPIUM (NEB) 3 ML AMP HHN ×3 (09:53→16:58)
[2018-05-21 11:33] LABS: ADD MAN DIFF? NO
[2018-05-21 11:34] LABS: BASOPHILS % 0.2 % (0.0-2.0); EOSINOPHILS # 0.1 10^3/ul (0.0-0.5); EOSINOPHILS % 1.3 % (0.0-7.0); HEMATOCRIT 33.1 % (42.0-52.0); HEMOGLOBIN 10.5 g/dl (14.0-18.0); LYMPHOCYTES # 0.7 10^3/ul (0.8-2.9); LYMPHOCYTES % 6.2 % (15.0-51.0); MEAN CORPUSCULAR HEMOGLOBIN 30.2 pg (29.0-33.0); MEAN CORPUSCULAR HGB CONC 31.7 g/dl (32.0-37.0); MEAN CORPUSCULAR VOLUME 95.1 fl (82.0-101.0); MEAN PLATELET VOLUME 12.4 fl (7.4-10.4); MONOCYTE # 0.9 10^3/ul (0.3-0.9); MONOCYTES % 8.5 % (0.0-11.0); NEUTROPHILS % 83.2 % (39.0-77.0); PLATELET COUNT 147 10^3/UL (140-415); RED BLOOD COUNT 3.48 10^6/ul (4.70-6.10); RED CELL DISTRIBUTION WIDTH 13.6 % (11.5-14.5)
[2018-05-21 11:34] LABS: WHITE BLOOD COUNT 10.8 10^3/ul (4.8-10.8)
[2018-05-21 11:56] LABS: PHOSPHORUS 4.7 mg/dl (2.5-4.9)
[2018-05-21 11:58] LABS: ALANINE AMINOTRANSFERASE 62 IU/L (13-69); ALBUMIN 3.5 g/dl (3.3-4.9); ALBUMIN/GLOBULIN RATIO 1.12; ALKALINE PHOSPHATASE 154 IU/L (42-121); ANION GAP 19 (8-16); ASPARTATE AMINO TRANSFERASE 61 IU/L (15-46); BILIRUBIN,INDIRECT 0.2 mg/dl (0-1.1); BILIRUBIN,TOTAL 0.2 mg/dl (0.2-1.3); BLOOD UREA NITROGEN 46 mg/dl (7-20); CALCIUM 9.1 mg/dl (8.4-10.2); CARBON DIOXIDE 26 mmol/L (21-31); CHLORIDE 97 mmol/L (97-110); CHOLESTEROL 120 mg/dl (100-200); CREATININE 9.42 mg/dl (0.61-1.24); GLUCOSE 141 mg/dl (70-220); HDL CHOLESTEROL 17 mg/dl (31-75); LDL CHOLESTEROL,CALCULATED 46 mg/dl; MAGNESIUM 2.1 mg/dl (1.7-2.5); SODIUM 137 mmol/L (135-144); TOTAL PROTEIN 6.6 g/dl (6.1-8.1); TRIGLYCERIDES 284 mg/dl (0-149)
[2018-05-21 12:03] LABS: PT RATIO 1.3
[2018-05-21 12:06] LABS: POTASSIUM 5.3 mmol/L (3.5-5.1)
[2018-05-21 12:20] LABS: INR 1.27; PROTIME 16.1 Sec (11.9-14.9)
[2018-05-21] MEDS ORDERED: MIDAZOLAM 1 MG/ML 2 ML INJ (13:24)
[2018-05-21] MEDS ORDERED: FENTAnyl 50 MCG/ML VIAL (13:24)
[2018-05-21] MEDS ORDERED: ALBUTEROL 0.083% (NEB) 2.5 MG/3 ML AMP HHN (14:00)
[2018-05-21] MEDS ORDERED: ONDANSETRON 4 MG INJ IV (14:00)
[2018-05-21] MEDS ORDERED: LABETALOL HCL 20MG INJ IV (14:00)
[2018-05-21] MEDS ORDERED: hydrALAzine 20 MG INJ IV (14:00)
[2018-05-21] MEDS ORDERED: FENTAnyl 50 MCG/ML VIAL IV (14:00)
[2018-05-22] MEDS ORDERED: CLOPIDOGREL 75 MG TAB PO (09:00)
[2018-05-30 14:05] LABS: ALBUMIN 3.6 g/dL (3.8-4.8); ALPHA-1-GLOBULINS 0.5 g/dL (0.2-0.3); ALPHA-2-GLOBULINS 0.8 g/dL (0.5-0.9); BETA 2 GLOBULINS 0.4 g/dL (0.2-0.5); BETA GLOBULINS 0.3 g/dL (0.4-0.6); GAMMA GLOBULINS 0.9 g/dL (0.8-1.7); PROTEIN, TOTAL 6.6 g/dL (6.1-8.1)
[2018-05-30 14:06] LABS: CARDIOLIPIN AB - IGA <11 APL; CARDIOLIPIN AB - IGG <14 GPL; CARDIOLIPIN AB - IGM <12 MPL; DRVVT CONFIRMATION NEGATIVE (NEGATIVE); HEXAGONAL PHASE CONFIRMATION POSITIVE (NEGATIVE); THROMBIN CLOTTING TIME 14 sec (13-19)
== END 2018-05-21 17:25 | disposition home or self-care (01) | DRG 166 ==
LOC: E/R 15:31 → TEL 23:19
PROC: 5A1D70Z Performance of Urinary Filtration, Intermittent, Less than 6 Hours Per Day (ICD-10-PCS; principal; 2018-05-20 11:11)
PROC: 0B9G8ZZ Drainage of Left Upper Lung Lobe, Via Natural or Artificial Opening Endoscopic (ICD-10-PCS; 2018-05-20 11:11)
PROC: 0BBG3ZX Excision of Left Upper Lung Lobe, Percutaneous Approach, Diagnostic (ICD-10-PCS; 2018-05-20 11:11)
DX: J18.9 Pneumonia, unspecified organism (principal); N18.6 End stage renal disease; J44.1 Chronic obstructive pulmonary disease with (acute) exacerbation; I12.0 Hypertensive chronic kidney disease with stage 5 chronic kidney disease or end stage renal disease; R04.2 Hemoptysis; E11.22 Type 2 diabetes mellitus with diabetic chronic kidney disease; E87.5 Hyperkalemia; D69.59 Other secondary thrombocytopenia; Z95.1 Presence of aortocoronary bypass graft; I25.10 Atherosclerotic heart disease of native coronary artery without angina pectoris; F17.210 Nicotine dependence, cigarettes, uncomplicated; D14.32 Benign neoplasm of left bronchus and lung; R79.1 Abnormal coagulation profile; I25.2 Old myocardial infarction; Z99.2 Dependence on renal dialysis; Z79.02 Long term (current) use of antithrombotics/antiplatelets; Z79.4 Long term (current) use of insulin; Z91.19 Patient's noncompliance with other medical treatment and regimen
CPT/HCPCS: 36415; 71045; 71250; 74176; 77012; 80048; 80053; 80061; 80202; 81001; 81270; 82378; 82784; 83036; 83605; 83615; 83690; 83735; 84100; 84153; 84154; 84155; 84165; 84443; 84484; 85025; 85335; 85610; 85613; 85730; 86147; 86320; 86635; 86706; 87040; 87070; 87075; 87086; 87102; 87116; 87340; 88104; 88305; 88307; 88312; 88313; 90935; 93005; 94640; 94664; 96374; 96375; 99285-25

== ENCOUNTER 2018-06-01 01:54 | Inpatient (IN) | payer MEDICARE, OTHER ==
[2018-06-01] MEDS: IPRATROPIUM (NEB) 0.5 MG/2.5 ML AMP INH (02:42)
[2018-06-01] MEDS: ALBUTEROL 0.083% (NEB) 2.5 MG/3 ML AMP INH (02:43)
[2018-06-01 02:47] LABS: ADD MAN DIFF? NO
[2018-06-01 02:51] LABS: BASOPHILS % 0.3 % (0.0-2.0); EOSINOPHILS # 0.1 10^3/ul (0.0-0.5); EOSINOPHILS % 1.2 % (0.0-7.0); HEMATOCRIT 29.8 % (42.0-52.0); HEMOGLOBIN 9.4 g/dl (14.0-18.0); IMMATURE GRANS #M 0.12 10^3/ul; IMMATURE GRANS % (M) 1.2 %; LYMPHOCYTES # 0.9 10^3/ul (0.8-2.9); LYMPHOCYTES % 9.4 % (15.0-51.0); MEAN CORPUSCULAR HEMOGLOBIN 30.7 pg (29.0-33.0); MEAN CORPUSCULAR HGB CONC 31.5 g/dl (32.0-37.0); MEAN CORPUSCULAR VOLUME 97.4 fl (82.0-101.0); MEAN PLATELET VOLUME 11.4 fl (7.4-10.4); MONOCYTE # 0.6 10^3/ul (0.3-0.9); MONOCYTES % 5.9 % (0.0-11.0); PLATELET COUNT 190 10^3/UL (140-415); RED BLOOD COUNT 3.06 10^6/ul (4.70-6.10); RED CELL DISTRIBUTION WIDTH 13.6 % (11.5-14.5)
[2018-06-01 02:51] LABS: WHITE BLOOD COUNT 9.8 10^3/ul (4.8-10.8)
[2018-06-01 03:07] LABS: INR 1.22; PROTIME 15.6 Sec (11.9-14.9); PT RATIO 1.2
[2018-06-01 03:08] LABS: PARTIAL THROMBOPLASTIN TIME 31.5 Sec (25.0-35.0)
[2018-06-01 03:16] LABS: LACTIC ACID 1.2 mmol/L (0.5-2.0)
[2018-06-01 03:17] LABS: ALANINE AMINOTRANSFERASE 50 IU/L (13-69); ALBUMIN 3.6 g/dl (3.3-4.9); ALBUMIN/GLOBULIN RATIO 1.12; ALKALINE PHOSPHATASE 123 IU/L (42-121); ANION GAP 19 (8-16); ASPARTATE AMINO TRANSFERASE 25 IU/L (15-46); BLOOD UREA NITROGEN 56 mg/dl (7-20); CALCIUM 8.7 mg/dl (8.4-10.2); CARBON DIOXIDE 24 mmol/L (21-31); CHLORIDE 105 mmol/L (97-110); CREATININE 7.34 mg/dl (0.61-1.24); GLUCOSE 130 mg/dl (70-220); SODIUM 143 mmol/L (135-144); TOTAL PROTEIN 6.8 g/dl (6.1-8.1)
[2018-06-01 03:25] LABS: B-TYPE NATRIURETIC PEPTIDE 22200 PG/ML (0-450)
[2018-06-01 03:27] LABS: TROPONIN-I 0.039 ng/ml (0.000-0.120)
[2018-06-01 03:48] LABS: ADD UMIC YES; UR ASCORBIC ACID NEGATIVE (NEGATIVE); UR BILIRUBIN (Dip) NEGATIVE (NEGATIVE); UR BLOOD (Dip) 1+ mg/dL (NEGATIVE); UR CLARITY CLEAR (CLEAR); UR COLOR YELLOW (YELLOW); UR GLUCOSE (Dip) 2+ mg/dL (NEGATIVE); UR KETONES (Dip) NEGATIVE (NEGATIVE); UR LEUKOCYTE ESTERASE (Dip) NEGATIVE Leu/ul (NEGATIVE); UR NITRITE (Dip) NEGATIVE (NEGATIVE); UR RBC 5 /HPF (0-5); UR SPECIFIC GRAVITY (Dip) 1.012 (1.003-1.030); UR TOTAL PROTEIN (Dip) 3+ mg/dl (NEGATIVE); UR UROBILINOGEN (Dip) NEGATIVE (NEGATIVE); UR WBC 2 /HPF (0-5)
[2018-06-01 06:13] LABS: LACTIC ACID 0.8 mmol/L (0.5-2.0)
[2018-06-01 06:37] LABS: LACTIC ACID 0.9 mmol/L (0.5-2.0)
[2018-06-01] MEDS: FUROSEMIDE 40 MG INJ IV (06:55)
[2018-06-01] MEDS ORDERED: ONDANSETRON 4 MG INJ IV (07:00)
[2018-06-01] MEDS ORDERED: NACL 0.9% 3 ML SYG IV (07:00)
[2018-06-01] MEDS ORDERED: ACETAMINOPHEN 325 MG TAB PO (07:00)
[2018-06-01] MEDS ORDERED: HYDROCODONE/APAP (5/325) TAB PO (07:00)
[2018-06-01] MEDS: hydrALAzine 20 MG INJ IV ×3 (08:02→21:45)
[2018-06-01] MEDS: ALBUTEROL/IPRATROPIUM (NEB) 3 ML AMP HHN ×2 (09:54→23:01)
[2018-06-01] MEDS ORDERED: VANCOMYCIN IV PER PHARMACY XX (10:00)
[2018-06-01] MEDS: SEVELAMER CARBONATE 0.8 GM PKT PO ×3 (11:45→17:34)
[2018-06-01 11:53] LABS: HEPATITIS B SURFACE ANTIGEN NEGATIVE (NEGATIVE)
[2018-06-01] MEDS: ALLOPURINOL 100 MG TAB PO (13:54)
[2018-06-01 15:36] LABS: CARCINOEMBRYONIC ANTIGEN 4.6 ng/ml (0.0-5.0)
[2018-06-01] MEDS: CEFEPIME 1GM/50 ML (PMX) 50 ML IVPB (17:34)
[2018-06-01] MEDS: morphine 2 MG INJ IV (17:35)
[2018-06-01] MEDS: VANCOMYCIN 1.5 GM in SOD CHLORIDE 0.9% 250 ML IVPB (18:57)
[2018-06-01] MEDS: NIFEdipine (XL) 30 MG TAB PO ×2 (22:00→23:47)
[2018-06-01] MEDS: ATORVASTATIN 80 MG TAB PO (23:35)
[2018-06-01] MEDS: BENAZEPRIL 20 MG TAB PO (23:36)
[2018-06-02 05:48] LABS: ADD MAN DIFF? NO
[2018-06-02 05:57] LABS: BASOPHILS % 0.3 % (0.0-2.0); EOSINOPHILS # 0.1 10^3/ul (0.0-0.5); EOSINOPHILS % 1.2 % (0.0-7.0); HEMATOCRIT 32.4 % (42.0-52.0); HEMOGLOBIN 10.2 g/dl (14.0-18.0); IMMATURE GRANS #M 0.13 10^3/ul; IMMATURE GRANS % (M) 1.4 %; LYMPHOCYTES # 0.8 10^3/ul (0.8-2.9); MEAN CORPUSCULAR HEMOGLOBIN 30.2 pg (29.0-33.0); MEAN CORPUSCULAR HGB CONC 31.5 g/dl (32.0-37.0); MEAN CORPUSCULAR VOLUME 95.9 fl (82.0-101.0); MEAN PLATELET VOLUME 11.3 fl (7.4-10.4); MONOCYTE # 0.7 10^3/ul (0.3-0.9); MONOCYTES % 7.6 % (0.0-11.0); NEUTROPHIL # 7.7 10^3/ul (1.6-7.5); NEUTROPHILS % 81.5 % (39.0-77.0); PLATELET COUNT 207 10^3/UL (140-415); RED BLOOD COUNT 3.38 10^6/ul (4.70-6.10)
[2018-06-02 05:57] LABS: WHITE BLOOD COUNT 9.4 10^3/ul (4.8-10.8)
[2018-06-02] MEDS: PANTOPRAZOLE (EC) 40 MG TAB PO (06:05)
[2018-06-02 06:36] LABS: ALANINE AMINOTRANSFERASE 46 IU/L (13-69); ALBUMIN 3.5 g/dl (3.3-4.9); ALBUMIN/GLOBULIN RATIO 1.06; ALKALINE PHOSPHATASE 131 IU/L (42-121); ANION GAP 19 (8-16); ASPARTATE AMINO TRANSFERASE 23 IU/L (15-46); BILIRUBIN,INDIRECT 0.4 mg/dl (0-1.1); BILIRUBIN,TOTAL 0.4 mg/dl (0.2-1.3); BLOOD UREA NITROGEN 35 mg/dl (7-20); CALCIUM 8.6 mg/dl (8.4-10.2); CARBON DIOXIDE 28 mmol/L (21-31); CHLORIDE 99 mmol/L (97-110); CREATININE 5.02 mg/dl (0.61-1.24); GLUCOSE 117 mg/dl (70-220); MAGNESIUM 1.8 mg/dl (1.7-2.5); POTASSIUM 5.1 mmol/L (3.5-5.1); SODIUM 141 mmol/L (135-144); TOTAL PROTEIN 6.8 g/dl (6.1-8.1)
[2018-06-02 06:37] LABS: PHOSPHORUS 4.9 mg/dl (2.5-4.9)
[2018-06-02] MEDS: SEVELAMER CARBONATE 0.8 GM PKT PO ×3 (07:49→16:53)
[2018-06-02] MEDS: ALLOPURINOL 100 MG TAB PO (08:49)
[2018-06-02] MEDS: NIFEdipine (XL) 30 MG TAB PO ×2 (08:50→21:12)
[2018-06-02] MEDS: CEFEPIME 1GM/50 ML (PMX) 50 ML IVPB (11:54)
[2018-06-02] MEDS: ATORVASTATIN 80 MG TAB PO (21:12)
[2018-06-03] MEDS: [UNRECOGNIZED DRUG - OTHER] XX (05:00)
[2018-06-03] MEDS: PANTOPRAZOLE (EC) 40 MG TAB PO (05:42)
[2018-06-03 06:12] LABS: ADD MAN DIFF? NO
[2018-06-03 06:23] LABS: BASOPHILS % 0.5 % (0.0-2.0); EOSINOPHILS # 0.2 10^3/ul (0.0-0.5); EOSINOPHILS % 2.4 % (0.0-7.0); HEMATOCRIT 30.7 % (42.0-52.0); HEMOGLOBIN 9.9 g/dl (14.0-18.0); LYMPHOCYTES # 0.7 10^3/ul (0.8-2.9); MEAN CORPUSCULAR HEMOGLOBIN 31.2 pg (29.0-33.0); MEAN CORPUSCULAR HGB CONC 32.2 g/dl (32.0-37.0); MEAN CORPUSCULAR VOLUME 96.8 fl (82.0-101.0); MEAN PLATELET VOLUME 10.8 fl (7.4-10.4); MONOCYTE # 0.6 10^3/ul (0.3-0.9); MONOCYTES % 6.6 % (0.0-11.0); NEUTROPHIL # 6.8 10^3/ul (1.6-7.5); NEUTROPHILS % 81.4 % (39.0-77.0); PLATELET COUNT 181 10^3/UL (140-415); RED BLOOD COUNT 3.17 10^6/ul (4.70-6.10); RED CELL DISTRIBUTION WIDTH 13.7 % (11.5-14.5)
[2018-06-03 06:23] LABS: WHITE BLOOD COUNT 8.4 10^3/ul (4.8-10.8)
[2018-06-03 07:30] LABS: PHOSPHORUS 5.1 mg/dl (2.5-4.9)
[2018-06-03 07:30] LABS: MAGNESIUM 2.1 mg/dl (1.7-2.5)
[2018-06-03 07:48] LABS: ANION GAP 19 (8-16); BLOOD UREA NITROGEN 51 mg/dl (7-20); CALCIUM 8.9 mg/dl (8.4-10.2); CARBON DIOXIDE 25 mmol/L (21-31); CHLORIDE 109 mmol/L (97-110); CREATININE 7.23 mg/dl (0.61-1.24); GLUCOSE 133 mg/dl (70-220); POTASSIUM 5.8 mmol/L (3.5-5.1); SODIUM 147 mmol/L (135-144)
[2018-06-03] MEDS: NIFEdipine (XL) 30 MG TAB PO ×2 (09:00→21:07)
[2018-06-03] MEDS: SEVELAMER CARBONATE 0.8 GM PKT PO ×3 (10:35→17:35)
[2018-06-03] MEDS: ALLOPURINOL 100 MG TAB PO (10:36)
[2018-06-03] MEDS: CEFEPIME 1GM/50 ML (PMX) 50 ML IVPB (16:20)
[2018-06-03] MEDS ORDERED: morphine LIQ (10 MG/5 ML) CUP PO (17:30)
[2018-06-03] MEDS: VANCOMYCIN 1 GM 250 ML IVPB (17:42)
[2018-06-03] MEDS: ATORVASTATIN 80 MG TAB PO (21:06)
[2018-06-04] MEDS: PANTOPRAZOLE (EC) 40 MG TAB PO (05:43)
[2018-06-04 06:11] LABS: ADD MAN DIFF? NO
[2018-06-04 06:43] LABS: BASOPHILS % 0.4 % (0.0-2.0); EOSINOPHILS # 0.2 10^3/ul (0.0-0.5); EOSINOPHILS % 2.2 % (0.0-7.0); HEMOGLOBIN 11.2 g/dl (14.0-18.0); LYMPHOCYTES # 0.9 10^3/ul (0.8-2.9); LYMPHOCYTES % 9.9 % (15.0-51.0); MEAN CORPUSCULAR HEMOGLOBIN 30.6 pg (29.0-33.0); MEAN CORPUSCULAR VOLUME 95.6 fl (82.0-101.0); MEAN PLATELET VOLUME 11.4 fl (7.4-10.4); MONOCYTE # 0.8 10^3/ul (0.3-0.9); MONOCYTES % 8.1 % (0.0-11.0); NEUTROPHIL # 7.2 10^3/ul (1.6-7.5); NEUTROPHILS % 78.5 % (39.0-77.0); PLATELET COUNT 198 10^3/UL (140-415); RED BLOOD COUNT 3.66 10^6/ul (4.70-6.10); RED CELL DISTRIBUTION WIDTH 13.8 % (11.5-14.5)
[2018-06-04 06:43] LABS: WHITE BLOOD COUNT 9.2 10^3/ul (4.8-10.8)
[2018-06-04 07:12] LABS: ANION GAP 18 (8-16); BLOOD UREA NITROGEN 30 mg/dl (7-20); CALCIUM 8.9 mg/dl (8.4-10.2); CARBON DIOXIDE 30 mmol/L (21-31); CHLORIDE 97 mmol/L (97-110); CREATININE 5.14 mg/dl (0.61-1.24); GLUCOSE 119 mg/dl (70-220); POTASSIUM 4.8 mmol/L (3.5-5.1); SODIUM 140 mmol/L (135-144)
[2018-06-04] MEDS: SEVELAMER CARBONATE 0.8 GM PKT PO ×3 (07:43→17:38)
[2018-06-04] MEDS: ALLOPURINOL 100 MG TAB PO (08:20)
[2018-06-04] MEDS: NIFEdipine (XL) 30 MG TAB PO ×2 (08:21→20:19)
[2018-06-04] MEDS: CEFEPIME 1GM/50 ML (PMX) 50 ML IVPB (11:20)
[2018-06-04] MEDS: LIDOCAINE 1% (MPF) 5 ML VIAL (13:40)
[2018-06-04 14:07] LABS: LACTATE DEHYDROGENASE 477 IU/L (313-618)
[2018-06-04 14:09] LABS: FLD MN% 83.6 %; FLD PMN% 16.4 %; FLD RBC 4000 /uL; FLD WBC 477 /cmm
[2018-06-04 14:30] LABS: FLD TYPE THORACENTHESIS
[2018-06-04 14:31] LABS: FLD CLARITY CLOUDY; FLD COLOR YELLOW; PATH REVIEW? YES
[2018-06-04 15:59] LABS: FLUID LD 328 U/L; FLUID TOTAL PROTEIN 4.7 g/dl; FLUID TYPE THORACENTESIS FLUID
[2018-06-04 16:07] LABS: FLUID GLUCOSE 132 mg/dl; FLUID TYPE THORACENTESIS FLUID
[2018-06-04] MEDS: ATORVASTATIN 80 MG TAB PO (20:19)
[2018-06-05] MEDS: PANTOPRAZOLE (EC) 40 MG TAB PO (06:32)
[2018-06-05 07:16] LABS: ADD MAN DIFF? NO
[2018-06-05 07:17] LABS: BASOPHILS % 0.3 % (0.0-2.0); EOSINOPHILS # 0.2 10^3/ul (0.0-0.5); HEMATOCRIT 32.6 % (42.0-52.0); HEMOGLOBIN 10.5 g/dl (14.0-18.0); LYMPHOCYTES % 13.3 % (15.0-51.0); MEAN CORPUSCULAR HGB CONC 32.2 g/dl (32.0-37.0); MEAN CORPUSCULAR VOLUME 93.1 fl (82.0-101.0); MEAN PLATELET VOLUME 11.4 fl (7.4-10.4); MONOCYTE # 0.7 10^3/ul (0.3-0.9); NEUTROPHIL # 5.4 10^3/ul (1.6-7.5); NEUTROPHILS % 72.6 % (39.0-77.0); PLATELET COUNT 159 10^3/UL (140-415); RED CELL DISTRIBUTION WIDTH 13.9 % (11.5-14.5)
[2018-06-05 07:17] LABS: WHITE BLOOD COUNT 7.4 10^3/ul (4.8-10.8)
[2018-06-05 07:52] LABS: ANION GAP 18 (8-16); BLOOD UREA NITROGEN 44 mg/dl (7-20); CALCIUM 8.8 mg/dl (8.4-10.2); CARBON DIOXIDE 26 mmol/L (21-31); CHLORIDE 100 mmol/L (97-110); CREATININE 7.32 mg/dl (0.61-1.24); GLUCOSE 121 mg/dl (70-220); POTASSIUM 4.9 mmol/L (3.5-5.1); SODIUM 139 mmol/L (135-144)
[2018-06-05] MEDS: NIFEdipine (XL) 30 MG TAB PO (08:17)
[2018-06-05] MEDS: ALLOPURINOL 100 MG TAB PO (08:17)
[2018-06-05] MEDS: SEVELAMER CARBONATE 0.8 GM PKT PO ×2 (08:17→12:03)
[2018-06-05] MEDS: CEFEPIME 1GM/50 ML (PMX) 50 ML IVPB (16:24)
== END 2018-06-05 17:45 | disposition home or self-care (01) | DRG 193 ==
LOC: TEL 06-04 16:30 → E/R 01:54 → MS3 03:42
PROC: 5A1D70Z Performance of Urinary Filtration, Intermittent, Less than 6 Hours Per Day (ICD-10-PCS; 2018-06-01)
PROC: 0W9B3ZZ Drainage of Left Pleural Cavity, Percutaneous Approach (ICD-10-PCS; principal; 2018-06-04)
DX: J18.9 Pneumonia, unspecified organism (principal); N18.6 End stage renal disease; R04.2 Hemoptysis; I12.0 Hypertensive chronic kidney disease with stage 5 chronic kidney disease or end stage renal disease; J90 Pleural effusion, not elsewhere classified; J44.9 Chronic obstructive pulmonary disease, unspecified; Z95.1 Presence of aortocoronary bypass graft; Z72.0 Tobacco use; Z99.2 Dependence on renal dialysis; R91.8 Other nonspecific abnormal finding of lung field; K76.0 Fatty (change of) liver, not elsewhere classified; D64.9 Anemia, unspecified
CPT/HCPCS: 36415; 71045; 71250; 76942; 80048; 80053; 80202; 81001; 82042; 82378; 82945; 83605; 83615; 83735; 83880; 83986; 84100; 84157; 84484; 85025; 85610; 85730; 87040; 87070; 87081; 87086; 87102; 87116; 87340; 88104; 88305; 89051; 90935; 93005; 94640; 94664; 97161; 99285-25